=== PATIENT | male | born 1980 | race Caucasian/White ===

== ENCOUNTER 2019-05-20 18:49 | Emergency (ER) | payer OTHER ==
--- NOTE | 2019-05-20 21:07 | US ---
EXAMINATION TYPE: US venous doppler duplex LE RT DATE OF EXAM: 05/20/2019 8:41 PM COMPARISON: NONE CLINICAL HISTORY: Pain. Pain and swelling right inner thigh x 2 days. No HX of DVT. Patient is not on blood thinners. SIDE PERFORMED: Right TECHNIQUE: The lower extremity deep venous system is examined utilizing real time linear array sonog elham with graded compression, doppler sonography and color-flow sonography. VESSELS IMAGED: Common Femoral Vein Deep Femoral Vein Greater Saphenous Vein * Femoral Vein Popliteal Vein Small Saphenous Vein * Proximal Calf Veins (* superficial vessels) Right Leg: Limited study due to body habitus. Patient cannot tolerate full compression in distal fem oral vein or CFV/GSV origin. No evidence of DVT in veins imaged from prox calf veins to CFV. At the a keren of pain and swelling medial right thigh, there appear to be noncompressible, tortuous, superficia l vessels. IMPRESSION: Acute superficial thrombophlebitis felt present on initial images. Suboptimal study with out convincing evidence of acute DVT in the right lower extremity.
--- NOTE | 2019-05-20 21:24 | ED ---
Extremity Problem HPI - General Chief complaint: Extremity Problem,Nontraumatic Stated complaint: poss blood clot Time Seen by Provider: 05/20/19 19:53 Source: patient Mode of arrival: ambulatory Limitations: no limitations - History of Present Illness Initial comments: 39-year-old male patient presents to the emergency department today for evaluation of an area of redness, swelling, and tenderness over the right medial thigh. Patient states that it started this morning as a small area of redness has grown in size. Patient states the area is tender to touch. He denies any pain in the lower leg or foot. Denies numbness or tingling. Denies any fever or chills. Denies any history of similar symptoms. Patient states he does have multiple varicose veins of the lower extremities. Patient denies any recent rash, fever, chills, shortness breath, chest pain, palpitations, abdominal pain, nausea, vomiting, diarrhea, constipation, back pain, dizziness, weakness, hematuria, dysuria, urinary urgency, urinary frequency, headache, visual changes, or any other complaints. Review of Systems ROS Statement: Those systems with pertinent positive or pertinent negative responses have been documented in the HPI. ROS Other: All systems not noted in ROS Statement are negative. Past Medical History History of Any Multi-Drug Resistant Organisms: None Reported Past Surgical History: Orthopedic Surgery Smoking Status: Current every day smoker Past Alcohol Use History: Occasional Past Drug Use History: Marijuana General Exam Limitations: no limitations General appearance: alert, in no apparent distress, other (This is a well- developed, well-nourished adult male patient in no acute distress. Vital signs upon presentation are temperature 98.6F, pulse 87, respirations 20, blood pressure 145/90, pulse ox 98% on room air.) Respiratory exam: Present: normal lung sounds bilaterally. Absent: respiratory distress, wheezes, rales, rhonchi, stridor Cardiovascular Exam: Present: regular rate, normal rhythm, normal heart sounds. Absent: systolic murmur, diastolic murmur, rubs, gallop, clicks Extremities exam: Present: full ROM, normal capillary refill, other (Patient has a rope-like area of erythema and induration to the right medial thigh just above the knee. Skin to the lower extremities pink, warm, dry. Cap refills less than 3 seconds. Pedal and posttibial pulses are 2+ and equal bilaterally.). Absent: normal inspection, tenderness, pedal edema, joint swelling, calf tenderness Neurological exam: Present: alert, oriented X3, CN II-XII intact Psychiatric exam: Present: normal affect, normal mood Skin exam: Present: warm, dry, intact, normal color. Absent: rash Course Vital Signs 05/20/19 05/20/19 19:08 21:55 Temperature 98.6 F 98.2 F Pulse Rate 87 68 Respiratory 20 18 Rate Blood Pressure 145/90 130/80 O2 Sat by Pulse 98 96 Oximetry Medical Decision Making - Medical Decision Making 39-year-old male patient presents to the emergency department today for evaluation of redness, swelling, and tenderness over the right medial thigh. Physical examination reveals a croup-like area of erythema, induration, and swelling to the right medial thigh just above the knee. Ultrasound Doppler was obtained and showed no evidence for DVT but did show evidence for superficial thrombophlebitis. Physical exam confirms this. He'll be discharged home to follow-up with his primary care physician for recheck in 1-2 days. He is instructed to apply warm compresses to the area and to take ibuprofen 3 times daily. He is instructed to return to the emergency department immediately for any new, worsening, or concerning symptoms. He verbalizes understanding and agrees with this plan. - Radiology Data Radiology results: report reviewed Venous Doppler duplex of the right lower extremity is obtained. Report was reviewed in its entirety. Impression by Dr. Damico shows acute superficial thrombophlebitis is present on initial images. Suboptimal study with no convincing evidence of acute DVT in the right lower extremity. Disposition Clinical Impression: Superficial thrombophlebitis of right leg Disposition: HOME SELF-CARE Condition: Good Instructions (If sedation given, give patient instructions): Superficial Thrombophlebitis (ED) Additional Instructions: Do warm compresses to the area. Take ibuprofen or other anti-inflammatory medication to help relieve symptoms and resolve thrombophlebitis. Follow up with primary care physician for recheck in 1-2 days. Discuss referral to vascular specialist. Return to the emergency department for any new, worsening, or concerning symptoms. Is patient prescribed a controlled substance at d/c from ED?: No Referrals: None,Stated [Primary Care Provider] - 1-2 days Time of Disposition: 21:24
[2019-05-20 21:57] VITALS: BP 130/80; PULSE 68; RESP 18; TEMP 98.2
== END 2019-05-20 21:56 | disposition home or self-care (01) ==
LOC: EC 18:49
DX: I80.01 Phlebitis and thrombophlebitis of superficial vessels of right lower extremity (principal); F17.200 Nicotine dependence, unspecified, uncomplicated
CPT/HCPCS: 99283